=== PATIENT | male | born 1960 | race Caucasian/White ===

== ENCOUNTER 2017-01-20 13:17 | Emergency (ER) | payer BC, OTHER ==
[~2017-01-20] VITALS: Ht 177.8 cm; Wt 118.4 kg
[~2017-01-20 13:17] MED LIST: ACET500C PO
[2017-01-20 14:27] VITALS: BP 115/86
== END 2017-01-20 15:52 | disposition home or self-care (01) ==
LOC: ER 13:17
DX: S82.831A Other fracture of upper and lower end of right fibula, initial encounter for closed fracture (principal); X58.XXXA Exposure to other specified factors, initial encounter; Y93.89 Activity, other specified; Y99.8 Other external cause status; Y92.89 Other specified places as the place of occurrence of the external cause
CPT/HCPCS: 29505; 73700

== ENCOUNTER → 2017-06-07 | Outpatient (CLI) | payer OTHER ==
[2017-06-07 08:29] LABS: Urine RBC None Seen /hpf (0 - 3)
[2017-06-07 08:31] LABS: Basophils # (auto) 0 uL; Basophils % (auto) 0.5 % (0.0-2.0); CONDITION Y; Eosinophils # (auto) 0.2 uL; Eosinophils % (auto) 3.3 % (0.0-7.0); Hematocrit 48.3 % (41.0-53.0); Hemoglobin 16.6 g/dL (13.5-17.5); Lymphocytes # (auto) 2.2 uL; Lymphocytes % (auto) 33.5 % (10.0-50.0); Mean Corpuscular Hemoglobin 33.4 pg (28.0-32.0); Mean Corpuscular Hgb Conc. 34.5 g/dL (32.0-36.0); Mean Corpuscular Volume 96.9 fL (80.0-100.0); Mean Platelet Volume 8.6 fL (7.4-10.4); Monocytes # (auto) 0.5 uL; Monocytes % (auto) 7.6 % (0.0-12.0); Neutrophils # (auto) 3.6 uL; Neutrophils % (auto) 55.1 % (37.0-80.0); Platelet Count (auto) 162 10^3/uL (140-450); Red Cell Distribution Width 14.6 % (11.6-16.0); White Blood Cell 6.5 10^3/uL (4.4-10.8)
[2017-06-07 08:45] LABS: Urine Bilirubin Negative (Negative); Urine Blood Negative /uL (Negative); Urine Color Colorless (Yellow); Urine Glucose Normal (Normal); Urine Ketone Negative (Negative); Urine Nitrite Negative (Negative); Urine Urobilinogen Normal (Negative)
[2017-06-07 09:08] LABS: BUN/Creatinine Ratio 17.9; Bilirubin, Total 0.8 mg/dL (0.2-1.0); Potassium 4.2 mmol/L (3.5-5.1); Total Protein 8.1 g/dL (6.4-8.2)
== END | disposition home or self-care (01) ==
LOC: LAB 07:59
PROVIDERS: ATTEND Physician Assistant
DX: E11.9 Type 2 diabetes mellitus without complications (principal); K21.9 Gastro-esophageal reflux disease without esophagitis; E66.9 Obesity, unspecified
CPT/HCPCS: 36415; 80053; 80061; 81001; 82306; 82607; 83036; 84153; 84403; 85025

== ENCOUNTER → 2017-11-24 | Outpatient (CLI) | payer OTHER ==
[2017-11-24 07:36] LABS: Basophils # (auto) 0.1 uL; Basophils % (auto) 1.2 % (0.0-2.0); Eosinophils # (auto) 0.2 uL; Eosinophils % (auto) 4.7 % (0.0-7.0); Hematocrit 45.3 % (41.0-53.0); Hemoglobin 15.4 g/dL (13.5-17.5); Lymphocytes # (auto) 1.7 uL; Lymphocytes % (auto) 32.6 % (10.0-50.0); Monocytes # (auto) 0.5 uL; Monocytes % (auto) 8.9 % (0.0-12.0); Neutrophils # (auto) 2.7 uL; Neutrophils % (auto) 52.6 % (37.0-80.0); Nucleated Red Blood Cells % 0.2 %; Platelet Count (auto) 136 10^3/uL (140-450); Red Blood Cells 4.66 10^6/uL (4.5-5.90); Red Cell Distribution Width 14.5 % (11.8-14.3); White Blood Cell 5.1 10^3/uL (4.4-10.8)
[2017-11-24 07:56] LABS: Albumin 3.7 g/dL (3.4-5.0); BUN/Creatinine Ratio 12.2; Bilirubin, Total 0.8 mg/dL (0.2-1.0); Calcium 8.3 mg/dL (8.5-10.1); Potassium 4.2 mmol/L (3.5-5.1); Total Protein 7.8 g/dL (6.4-8.2)
== END | disposition home or self-care (01) ==
LOC: LAB 06:57
PROVIDERS: ATTEND Nurse Practitioner
DX: E78.5 Hyperlipidemia, unspecified (principal)
CPT/HCPCS: 36415; 80053; 80061; 85025

== ENCOUNTER → 2018-03-23 | Outpatient (CLI) | payer OTHER ==
[2018-03-23 07:46] LABS: Basophils # (auto) 0.1 uL; Basophils % (auto) 1.2 % (0.0-2.0); Eosinophils # (auto) 0.3 uL; Eosinophils % (auto) 6.6 % (0.0-7.0); Hemoglobin 15.7 g/dL (13.5-17.5); Lymphocytes # (auto) 1.6 uL; Lymphocytes % (auto) 30.3 % (10.0-50.0); Mean Corpuscular Hemoglobin 33.2 pg (28.0-32.0); Mean Corpuscular Hgb Conc. 34.2 g/dL (32.0-36.0); Monocytes # (auto) 0.5 uL; Monocytes % (auto) 10.1 % (0.0-12.0); Neutrophils # (auto) 2.7 uL; Neutrophils % (auto) 51.8 % (37.0-80.0); Nucleated Red Blood Cells % 0.1 %; Red Blood Cells 4.74 10^6/uL (4.5-5.90); Red Cell Distribution Width 14.8 % (11.8-14.3); White Blood Cell 5.3 10^3/uL (4.4-10.8)
[2018-03-23 07:50] LABS: Platelet Count (auto) 124 10^3/uL (140-450)
[2018-03-23 08:15] LABS: Urine Bacteria NONE SEEN /hpf (None Seen); Urine Blood Negative /uL (Negative); Urine Specific Gravity 1.012 (1.001-1.035); Urine WBC <1 /hpf (0 - 3)
[2018-03-23 08:21] LABS: Albumin 3.7 g/dL (3.4-5.0); BUN/Creatinine Ratio 22.2; Calcium 8.8 mg/dL (8.5-10.1); Potassium 4.1 mmol/L (3.5-5.1); Total Protein 7.9 g/dL (6.4-8.2)
== END | disposition home or self-care (01) ==
LOC: LAB 07:13
PROVIDERS: ATTEND Nurse Practitioner
DX: E78.5 Hyperlipidemia, unspecified (principal); E11.9 Type 2 diabetes mellitus without complications; K21.9 Gastro-esophageal reflux disease without esophagitis
CPT/HCPCS: 36415; 80053; 80061; 81001; 83036; 84443; 85025

== ENCOUNTER → 2019-02-27 | Outpatient (CLI) | payer OTHER ==
[2019-02-27 08:09] LABS: Urine Bacteria NONE SEEN /hpf (None Seen); Urine Blood Negative /uL (Negative); Urine Specific Gravity 1.031 (1.001-1.035); Urine WBC <1 /hpf (0 - 3)
[2019-02-27 08:36] LABS: Albumin 3.8 g/dL (3.4-5.0); Calcium 8.9 mg/dL (8.5-10.1)
[2019-02-27 08:41] LABS: BUN/Creatinine Ratio 27.2; Bilirubin, Total 1.3 mg/dL (0.2-1.0); Total Protein 7.5 g/dL (6.4-8.2)
== END | disposition home or self-care (01) ==
LOC: LAB 07:21
PROVIDERS: ATTEND Nurse Practitioner
DX: E78.5 Hyperlipidemia, unspecified (principal)
CPT/HCPCS: 36415; 80053; 80061; 81001; 82043; 82306; 83036; 84153

== ENCOUNTER → 2019-03-03 | Outpatient (CLI) | payer OTHER ==
[2019-03-03 12:11] LABS: Basophils # (auto) 0 uL; Basophils % (auto) 1.2 % (0.0-2.0); Eosinophils # (auto) 0.1 uL; Eosinophils % (auto) 2.8 % (0.0-7.0); Hematocrit 47.8 % (41.0-53.0); Hemoglobin 16.1 g/dL (13.5-17.5); Lymphocytes # (auto) 1.5 uL; Lymphocytes % (auto) 36.9 % (10.0-50.0); Mean Corpuscular Hemoglobin 33.5 pg (28.0-32.0); Mean Corpuscular Hgb Conc. 33.7 g/dL (32.0-36.0); Mean Corpuscular Volume 99.2 fL (80.0-100.0); Monocytes # (auto) 0.3 uL; Monocytes % (auto) 7.8 % (0.0-12.0); Neutrophils # (auto) 2.1 uL; Neutrophils % (auto) 51.3 % (37.0-80.0); Nucleated Red Blood Cells % 0.1 %; Platelet Count (auto) 93 10^3/uL (140-450); Red Blood Cells 4.82 10^6/uL (4.5-5.90); White Blood Cell 4.2 10^3/uL (4.4-10.8)
[2019-03-03 13:50] LABS: Urine Bacteria NONE SEEN /hpf (None Seen); Urine Blood Negative /uL (Negative); Urine Mucus FEW (None Seen); Urine Specific Gravity 1.014 (1.001-1.035); Urine Sperm PRESENT /hpf (None Seen); Urine WBC 1 /hpf (0 - 3)
[2019-03-03 14:22] LABS: Albumin 3.9 g/dL (3.4-5.0); Calcium 8.9 mg/dL (8.5-10.1); Potassium 4.3 mmol/L (3.5-5.1)
[2019-03-03 14:28] LABS: BUN/Creatinine Ratio 14.8; Bilirubin, Total 1.3 mg/dL (0.2-1.0); Total Protein 7.7 g/dL (6.4-8.2)
== END | disposition home or self-care (01) ==
LOC: LAB 11:28
PROVIDERS: ATTEND Nurse Practitioner
DX: E11.9 Type 2 diabetes mellitus without complications (principal); E78.5 Hyperlipidemia, unspecified
CPT/HCPCS: 36415; 80053; 80061; 81001; 82043; 82306; 83036; 84443; 85025

== ENCOUNTER → 2019-06-05 | Outpatient (CLI) | payer OTHER ==
[2019-06-05 09:10] LABS: Potassium 4.6 mmol/L (3.5-5.1)
[2019-06-05 09:21] LABS: Albumin 3.6 g/dL (3.4-5.0); BUN/Creatinine Ratio 24.1; Bilirubin, Total 0.6 mg/dL (0.2-1.0); Calcium 8.6 mg/dL (8.5-10.1); Total Protein 7.3 g/dL (6.4-8.2)
== END | disposition home or self-care (01) ==
LOC: LAB 07:35
PROVIDERS: ATTEND Nurse Practitioner
DX: E11.9 Type 2 diabetes mellitus without complications (principal)
CPT/HCPCS: 36415; 80053; 83036

== ENCOUNTER → 2019-11-22 | Outpatient (CLI) | payer OTHER ==
[2019-11-22 08:07] LABS: Basophils # (auto) 0 uL; Eosinophils # (auto) 0.2 uL; Hematocrit 44.2 % (41.0-53.0); Lymphocytes # (auto) 1.4 uL; Lymphocytes % (auto) 29.4 % (10.0-50.0); Mean Corpuscular Hemoglobin 33.2 pg (28.0-32.0); Mean Corpuscular Hgb Conc. 33.9 g/dL (32.0-36.0); Mean Corpuscular Volume 97.9 fL (80.0-100.0); Monocytes # (auto) 0.4 uL; Monocytes % (auto) 8.6 % (0.0-12.0); Neutrophils # (auto) 2.7 uL; Nucleated Red Blood Cells % 0.1 %; Platelet Count (auto) 86 10^3/uL (140-450); Red Blood Cells 4.51 10^6/uL (4.5-5.90); White Blood Cell 4.7 10^3/uL (4.4-10.8)
[2019-11-22 08:36] LABS: Albumin 3.7 g/dL (3.4-5.0); Calcium 8.9 mg/dL (8.5-10.1); Potassium 4.5 mmol/L (3.5-5.1)
[2019-11-22 08:41] LABS: Bilirubin, Total 0.9 mg/dL (0.2-1.0); Total Protein 7.3 g/dL (6.4-8.2)
== END | disposition home or self-care (01) ==
LOC: LAB 07:44
PROVIDERS: ATTEND Nurse Practitioner
DX: E78.5 Hyperlipidemia, unspecified (principal); E11.9 Type 2 diabetes mellitus without complications
CPT/HCPCS: 36415; 80053; 80061; 83036; 85025

== ENCOUNTER → 2020-03-21 | Outpatient (CLI) | payer OTHER ==
[2020-03-21 09:14] LABS: Basophils # (auto) 0 10 ^3/uL (0-0.2); Basophils % (auto) 1.3 % (0.0-2.0); Eosinophils # (auto) 0.1 10 ^3/uL (0-0.8); Eosinophils % (auto) 3.7 % (0.0-7.0); Hematocrit 42.6 % (41.0-53.0); Hemoglobin 14.4 g/dL (13.5-17.5); Lymphocytes # (auto) 1.3 10 ^3/uL (0.4-5.4); Lymphocytes % (auto) 35.6 % (10.0-50.0); Mean Corpuscular Hemoglobin 32.8 pg (28.0-32.0); Mean Corpuscular Hgb Conc. 33.8 g/dL (32.0-36.0); Mean Corpuscular Volume 97.2 fL (80.0-100.0); Monocytes # (auto) 0.3 10 ^3/uL (0-1.3); Monocytes % (auto) 8.6 % (0.0-12.0); Neutrophils # (auto) 1.8 10 ^3/uL (1.6-8.6); Neutrophils % (auto) 50.8 % (37.0-80.0); Nucleated Red Blood Cells % 0.1 %; Platelet Count (auto) 76 10^3/uL (140-450); Red Blood Cells 4.38 10^6/uL (4.5-5.90); Red Cell Distribution Width 15.3 % (11.8-14.3); White Blood Cell 3.6 10^3/uL (4.4-10.8)
[2020-03-21 10:22] LABS: Urine Bacteria NONE SEEN /hpf (None Seen); Urine Blood Negative /uL (Negative); Urine Mucus FEW (None Seen); Urine Specific Gravity 1.021 (1.001-1.035); Urine WBC 1 /hpf (0 - 3)
[2020-03-21 10:41] LABS: Albumin 3.4 g/dL (3.4-5.0)
[2020-03-21 10:48] LABS: BUN/Creatinine Ratio 23.2; Bilirubin, Total 0.9 mg/dL (0.2-1.0); Calcium 8.3 mg/dL (8.5-10.1); Total Protein 7.1 g/dL (6.4-8.2)
== END | disposition home or self-care (01) ==
LOC: LAB 08:51
PROVIDERS: ATTEND Nurse Practitioner
DX: E78.2 Mixed hyperlipidemia (principal); Z00.00 Encounter for general adult medical examination without abnormal findings; E78.5 Hyperlipidemia, unspecified
CPT/HCPCS: 36415; 80053; 80061; 81001; 82043; 83036; 84443; 85025

== ENCOUNTER → 2020-08-06 | Outpatient (CLI) | payer OTHER ==
[2020-08-06 08:53] LABS: Basophils # (auto) 0 10 ^3/uL (0-0.2); Basophils % (auto) 0.7 % (0.0-2.0); Eosinophils # (auto) 0.1 10 ^3/uL (0-0.8); Eosinophils % (auto) 2.6 % (0.0-7.0); Hematocrit 43.5 % (41.0-53.0); Hemoglobin 14.5 g/dL (13.5-17.5); Lymphocytes # (auto) 1.5 10 ^3/uL (0.4-5.4); Mean Corpuscular Hemoglobin 33.1 pg (28.0-32.0); Mean Corpuscular Hgb Conc. 33.3 g/dL (32.0-36.0); Mean Corpuscular Volume 99.4 fL (80.0-100.0); Monocytes # (auto) 0.5 10 ^3/uL (0-1.3); Monocytes % (auto) 10.8 % (0.0-12.0); Neutrophils # (auto) 2.2 10 ^3/uL (1.6-8.6); Neutrophils % (auto) 50.9 % (37.0-80.0); Red Blood Cells 4.38 10^6/uL (4.5-5.90); Red Cell Distribution Width 15.6 % (11.8-14.3); White Blood Cell 4.4 10^3/uL (4.4-10.8)
[2020-08-06 09:10] LABS: Platelet Count (auto) 69 10^3/uL (140-450)
[2020-08-06 09:59] LABS: Potassium 4.3 mmol/L (3.5-5.1)
[2020-08-06 10:09] LABS: Albumin 3.5 g/dL (3.4-5.0); BUN/Creatinine Ratio 18.1; Bilirubin, Total 1.5 mg/dL (0.2-1.0); Total Protein 6.7 g/dL (6.4-8.2)
== END | disposition home or self-care (01) ==
LOC: LAB 08:18
PROVIDERS: ATTEND Nurse Practitioner
DX: E11.9 Type 2 diabetes mellitus without complications (principal); E78.5 Hyperlipidemia, unspecified
CPT/HCPCS: 36415; 80053; 80061; 83036; 85025

== ENCOUNTER → 2021-02-25 | Outpatient (CLI) | payer OTHER ==
[2021-02-25 08:50] LABS: Basophils # (auto) 0 10 ^3/uL (0-0.2); Basophils % (auto) 0.6 % (0.0-2.0); Eosinophils # (auto) 0.4 10 ^3/uL (0-0.8); Hematocrit 43.2 % (41.0-53.0); Hemoglobin 14.7 g/dL (13.5-17.5); Lymphocytes # (auto) 1.2 10 ^3/uL (0.4-5.4); Lymphocytes % (auto) 27.4 % (10.0-50.0); Mean Corpuscular Hemoglobin 33.5 pg (28.0-32.0); Mean Corpuscular Volume 98.6 fL (80.0-100.0); Monocytes # (auto) 0.4 10 ^3/uL (0-1.3); Monocytes % (auto) 9.7 % (0.0-12.0); Neutrophils # (auto) 2.4 10 ^3/uL (1.6-8.6); Neutrophils % (auto) 54.3 % (37.0-80.0); Nucleated Red Blood Cells % 0.1 %; Platelet Count (auto) 67 10^3/uL (140-450); Red Blood Cells 4.38 10^6/uL (4.5-5.90); Red Cell Distribution Width 15.8 % (11.8-14.3); White Blood Cell 4.5 10^3/uL (4.4-10.8)
[2021-02-25 09:02] LABS: Urine Bacteria NONE SEEN /hpf (None Seen); Urine Blood Negative /uL (Negative); Urine Specific Gravity 1.039 (1.001-1.035); Urine WBC 1 /hpf (0 - 3)
[2021-02-25 09:17] LABS: Albumin 3.5 g/dL (3.4-5.0); Calcium 9.2 mg/dL (8.5-10.1)
[2021-02-25 09:23] LABS: BUN/Creatinine Ratio 15.5; Total Protein 7.3 g/dL (6.4-8.2)
== END | disposition home or self-care (01) ==
LOC: LAB 08:33
PROVIDERS: ATTEND Nurse Practitioner
DX: I10 Essential (primary) hypertension (principal); E11.9 Type 2 diabetes mellitus without complications; E78.5 Hyperlipidemia, unspecified
CPT/HCPCS: 36415; 80053; 80061; 81001; 82043; 83036; 84443; 85025

== ENCOUNTER → 2021-05-22 | Outpatient (CLI) | payer OTHER ==
[2021-05-22 10:02] LABS: Urine Bacteria NONE SEEN /hpf (None Seen); Urine Blood Negative /uL (Negative); Urine Specific Gravity 1.019 (1.001-1.035); Urine WBC 1 /hpf (0 - 3)
[2021-05-22 10:25] LABS: Potassium 3.8 mmol/L (3.5-5.1)
[2021-05-22 10:39] LABS: Albumin 2.9 g/dL (3.4-5.0); BUN/Creatinine Ratio 15.7; Bilirubin, Total 2.1 mg/dL (0.2-1.0); Calcium 8.3 mg/dL (8.5-10.1); Total Protein 6.7 g/dL (6.4-8.2)
[2021-05-23 13:11] LABS: Creatinine Clearance, Urine 147.24 mL/min (75-115)
== END | disposition home or self-care (01) ==
LOC: LAB 09:32
PROVIDERS: ATTEND Nurse Practitioner
DX: I10 Essential (primary) hypertension (principal); E78.5 Hyperlipidemia, unspecified; E11.00 Type 2 diabetes mellitus with hyperosmolarity without nonketotic hyperglycemic-hyperosmolar coma (NKHHC)
CPT/HCPCS: 36415; 80053; 80061; 81001; 82575; 83036

== ENCOUNTER → 2022-02-26 | Outpatient (CLI) | payer OTHER ==
[2022-02-26 09:32] LABS: Calcium 8.5 mg/dL (8.5-10.1)
[2022-02-26 09:38] LABS: BUN/Creatinine Ratio 18.9; Bilirubin, Total 1.5 mg/dL (0.2-1.0); Total Protein 6.7 g/dL (6.4-8.2)
== END | disposition home or self-care (01) ==
LOC: LAB 07:54
PROVIDERS: ATTEND Nurse Practitioner
DX: I10 Essential (primary) hypertension (principal); E78.5 Hyperlipidemia, unspecified
CPT/HCPCS: 36415; 80053; 80061

== ENCOUNTER → 2022-11-26 | Outpatient (CLI) | payer OTHER ==
[2022-11-26 10:54] LABS: Basophils # (auto) 0 10 ^3/uL (0-0.2); Eosinophils # (auto) 0.3 10 ^3/uL (0-0.8); Hemoglobin 11.9 g/dL (13.5-17.5); Neutrophils # (auto) 1.7 10 ^3/uL (1.6-8.6); White Blood Cell 3.2 10^3/uL (4.4-10.8)
[2022-11-26 10:56] LABS: Basophils % (auto) 0.8 % (0.0-2.0); Eosinophils % (auto) 8.4 % (0.0-7.0); Hematocrit 35.8 % (41.0-53.0); Lymphocytes # (auto) 0.8 10 ^3/uL (0.4-5.4); Mean Corpuscular Hemoglobin 31.3 pg (28.0-32.0); Mean Corpuscular Hgb Conc. 33.1 g/dL (32.0-36.0); Mean Corpuscular Volume 94.5 fL (80.0-100.0); Monocytes # (auto) 0.4 10 ^3/uL (0-1.3); Neutrophils % (auto) 54.8 % (37.0-80.0); Nucleated Red Blood Cells % 0.1 %; Red Blood Cells 3.79 10^6/uL (4.5-5.90); Red Cell Distribution Width 18.5 % (11.8-14.3)
[2022-11-26 11:55] LABS: Potassium 3.9 mmol/L (3.5-5.1)
[2022-11-26 12:13] LABS: Albumin 3.1 g/dL (3.4-5.0); BUN/Creatinine Ratio 17.6; Bilirubin, Total 2.2 mg/dL (0.2-1.0); Calcium 8.6 mg/dL (8.5-10.1); Total Protein 6.4 g/dL (6.4-8.2)
[2022-11-26 12:25] LABS: Urine Bacteria NONE SEEN /hpf (None Seen); Urine Blood Negative /uL (Negative); Urine Specific Gravity 1.013 (1.001-1.035); Urine WBC <1 /hpf (0 - 3)
== END | disposition home or self-care (01) ==
LOC: LAB 10:36
PROVIDERS: ATTEND Nurse Practitioner
DX: I10 Essential (primary) hypertension (principal); E78.5 Hyperlipidemia, unspecified; R73.9 Hyperglycemia, unspecified
CPT/HCPCS: 36415; 80053; 80061; 81001; 83036; 84153; 84443; 85025

== ENCOUNTER → 2023-02-12 | Outpatient (CLI) | payer OTHER | END | disposition home or self-care (01) | LOC: LAB 11:15 | PROVIDERS: ATTEND Family Medicine | DX: L57.0 Actinic keratosis (principal) | CPT/HCPCS: 88302 ==

== ENCOUNTER → 2023-07-28 | Outpatient (CLI) | payer OTHER ==
[2023-07-28 10:31] LABS: Alanine Aminotransferase 37 U/L (7-40); Albumin 3.4 g/dL (3.2-4.8); Alkaline Phosphatase 204 U/L (46-116); Anion Gap 10 (5-15); Aspartate Aminotransferase 61 U/L (13-40); BUN/Creatinine Ratio 11.6 (10.0-20.0); Blood Urea Nitrogen 8 mg/dL (9-23); Calcium 9.2 mg/dL (8.5-10.1); Carbon Dioxide 23 mmol/L (20-30); Chloride 109 mmol/L (98-107); Cholesterol 117 mg/dL (< 200); Glucose 79 mg/dL (74-106); HDL Cholesterol 54 mg/dL (40-59); LDL Cholesterol 33 mg/dL (< 100); Potassium 4.2 mmol/L (3.5-5.1); Sodium 142 mmol/L (136-145); Triglycerides 69 mg/dL (< 150)
[2023-07-28 10:32] LABS: Total Protein 6.2 g/dL (5.7-8.2)
== END | disposition home or self-care (01) ==
LOC: LAB 09:26
PROVIDERS: ATTEND Nurse Practitioner
DX: E11.9 Type 2 diabetes mellitus without complications (principal); E78.5 Hyperlipidemia, unspecified
CPT/HCPCS: 36415; 80053; 80061; 83036

== ENCOUNTER 2023-09-07 08:58 | Inpatient (IN) | payer BC, OTHER ==
[~2023-09-07] VITALS: Ht 177.8 cm; Wt 108.0 kg
[2023-09-07 10:38] LABS: Basophils # (auto) 0 10 ^3/uL (0-0.2); Eosinophils # (auto) 0.2 10 ^3/uL (0-0.8); Lymphocytes # (auto) 0.9 10 ^3/uL (0.4-5.4); Monocytes # (auto) 0.3 10 ^3/uL (0-1.3); Monocytes % (auto) 9.9 % (0.0-12.0); Neutrophils # (auto) 1.9 10 ^3/uL (1.6-8.6)
[2023-09-07 10:41] LABS: Basophils % (auto) 0.5 % (0.0-2.0); Eosinophils % (auto) 5.4 % (0.0-7.0); Hematocrit 38.6 % (41.0-53.0); Hemoglobin 13.3 g/dL (13.5-17.5); Lymphocytes % (auto) 27.3 % (10.0-50.0); Mean Corpuscular Hemoglobin 36.7 pg (28.0-32.0); Mean Corpuscular Hgb Conc. 34.4 g/dL (32.0-36.0); Mean Corpuscular Volume 106.7 fL (80.0-100.0); Neutrophils % (auto) 56.9 % (37.0-80.0); Nucleated Red Blood Cells % 0.2 %; Red Blood Cells 3.62 10^6/uL (4.5-5.90); Red Cell Distribution Width 15.5 % (11.8-14.3); White Blood Cell 3.3 10^3/uL (4.4-10.8)
[2023-09-07 10:53] LABS: Alanine Aminotransferase 49 U/L (7-40); Albumin 3.4 g/dL (3.2-4.8); Alkaline Phosphatase 152 U/L (46-116); Anion Gap 8 (5-15); Aspartate Aminotransferase 73 U/L (13-40); BUN/Creatinine Ratio 15.3 (10.0-20.0); Blood Urea Nitrogen 13 mg/dL (9-23); Calcium 8.9 mg/dL (8.5-10.1); Carbon Dioxide 24 mmol/L (20-30); Chloride 109 mmol/L (98-107); Glucose 72 mg/dL (74-106); Sodium 141 mmol/L (136-145)
[2023-09-07 10:54] LABS: Bilirubin, Total 3.6 mg/dL (0.2-1.0)
[2023-09-07] MEDS ORDERED: AZITHROMYCIN 500MG/ 250ML 250 ML IV ONE (11:30)
[2023-09-07] MEDS ORDERED: cefTRIAXone 1GM/50ML D5W 50 ML IV ONE (11:30)
[2023-09-07 12:19] LABS: Lactic Acid w/Reflex 4.2 mmol/L (0.4-2.0)
[2023-09-07] MEDS ORDERED: SODIUM CHLORIDE 0.9% 1,000 ML IV ONE ×2 (12:45)
[2023-09-07 12:47] LABS: Lipase 101 U/L (12-53)
[2023-09-07] MEDS ORDERED: ONDANSETRON HCL 4 MG/2 ML VIAL IV PRN (14:30)
[2023-09-07] MEDS ORDERED: ACETAMINOPHEN 325 MG TAB PO PRN (14:30)
[2023-09-07 16:17] LABS: LDL Cholesterol 39 mg/dL (< 100); Triglycerides 103 mg/dL (< 150)
[2023-09-07 16:19] LABS: Cholesterol 119 mg/dL (< 200); HDL Cholesterol 45 mg/dL (40-59)
[2023-09-07 17:50] LABS: Urine Bacteria MOD /hpf (None Seen); Urine Blood Negative /uL (Negative); Urine Clarity Clear (Clear); Urine Color Yellow (Yellow); Urine Hyaline Cast FEW /lpf (0 - 2); Urine Mucus FEW (None Seen); Urine Protein, UAD 1+ (Negative); Urine Specific Gravity 1.032 (1.001-1.035); Urine Sperm PRESENT /hpf (None Seen); Urine Urobilinogen Normal (Negative); Urine WBC 3 /hpf (0 - 3); Urine pH 5.5 (5.0-8.0)
[2023-09-07 18:03] LABS: Amphetamine Screen, Urine Neg (NEGATIVE)
[2023-09-07 18:04] LABS: Barbiturate Scree,Urine Neg (NEGATIVE); Benzodiazephine Screen, Urine Neg (NEGATIVE); Cannabinoid Screen, Urine Pos (NEGATIVE); Cocaine Screen, Urine Neg (NEGATIVE); Opiate Scree,Urine Neg (NEGATIVE); Phencyclidine Screen, Urine Neg (NEGATIVE)
[2023-09-07 19:30] VITALS: PULSE 100; RESP 22; O2SAT 92
[2023-09-07 20:21] LABS: INR 1.32 (0.9-1.15); Partial Thromboplastin Time 28.5 SEC (24.5-34.5); Prothrombin Time 13.6 sec (9.3-11.8)
[2023-09-07 20:43] LABS: Lactic Acid w/Reflex 3.7 mmol/L (0.4-2.0)
[2023-09-07 21:11] LABS: Salicylate < 3.0 mg/dL (2.8-20.0)
[2023-09-08 05:10] VITALS: PULSE 71; RESP 13; O2SAT 94
[2023-09-08 06:52] LABS: Alanine Aminotransferase 39 U/L (7-40); Albumin 2.8 g/dL (3.2-4.8); Alkaline Phosphatase 113 U/L (46-116); Anion Gap 8 (5-15); Aspartate Aminotransferase 60 U/L (13-40); BUN/Creatinine Ratio 17.2 (10.0-20.0); Blood Urea Nitrogen 11 mg/dL (9-23); Carbon Dioxide 25 mmol/L (20-30); Chloride 109 mmol/L (98-107); Glucose 58 mg/dL (74-106); Magnesium 1.9 mg/dL (1.6-2.6); Potassium 3.8 mmol/L (3.5-5.1); Sodium 142 mmol/L (136-145)
[2023-09-08 06:53] LABS: Bilirubin, Total 3.5 mg/dL (0.2-1.0); Total Protein 5.1 g/dL (5.7-8.2)
[2023-09-08 06:58] LABS: Basophils # (auto) 0 10 ^3/uL (0-0.2); Eosinophils % (auto) 5.8 % (0.0-7.0); Hemoglobin 11.5 g/dL (13.5-17.5); Lymphocytes # (auto) 0.7 10 ^3/uL (0.4-5.4); Mean Corpuscular Hgb Conc. 34.2 g/dL (32.0-36.0); Neutrophils # (auto) 1.4 10 ^3/uL (1.6-8.6)
[2023-09-08 07:01] LABS: Basophils % (auto) 0.6 % (0.0-2.0); Eosinophils # (auto) 0.2 10 ^3/uL (0-0.8); Hematocrit 33.7 % (41.0-53.0); Lymphocytes % (auto) 25.9 % (10.0-50.0); Mean Corpuscular Hemoglobin 36.1 pg (28.0-32.0); Mean Corpuscular Volume 105.6 fL (80.0-100.0); Monocytes # (auto) 0.4 10 ^3/uL (0-1.3); Monocytes % (auto) 13.8 % (0.0-12.0); Neutrophils % (auto) 53.9 % (37.0-80.0); Nucleated Red Blood Cells % 0.1 %; Red Blood Cells 3.19 10^6/uL (4.5-5.90); Red Cell Distribution Width 15.6 % (11.8-14.3); White Blood Cell 2.6 10^3/uL (4.4-10.8)
[2023-09-08 08:00] VITALS: PULSE 72; RESP 13; O2SAT 94
[2023-09-08] MEDS ORDERED: ASPI-325 PO (08:42)
[2023-09-08] MEDS ORDERED: PANT40TA57 PO (08:42)
[2023-09-08] MEDS ORDERED: LISI10TA34 PO (08:42)
[2023-09-08] MEDS ORDERED: LOVA10TA54 PO (08:42)
[2023-09-08] MEDS ORDERED: TAMS0.4C36 PO (08:42)
[2023-09-08] MEDS ORDERED: AZITHROMYCIN 500MG/ 250ML 250 ML IV SCH (10:00)
[2023-09-08] MEDS ORDERED: ENOXAPARIN SOD 40 MG/0.4 ML SYRINGE SC SCH (10:00)
[2023-09-08] MEDS ORDERED: METF-372 PO (10:44)
[2023-09-08] MEDS: cefTRIAXone 1GM/50ML D5W 50 ML IV SCH (11:52)
[2023-09-08 13:30] VITALS: BP 129/71; PULSE 79; RESP 18; TEMP 98.1; O2SAT 98
[2023-09-08 15:15] LABS: Body Fluid Polymorphonuclear 10 % (0-25); Body Fluid White Blood Cells 90 CUMM (0-200)
[2023-09-08 15:16] LABS: Body Fluid Red Blood Cells 2348 CUMM (0-2000)
[2023-09-08 16:30] VITALS: BP 115/73; PULSE 87; RESP 18; TEMP 98.2; O2SAT 92
[2023-09-08 18:09] VITALS: PULSE 98; RESP 18; O2SAT 97
[2023-09-08] MEDS: DOXYCYCLINE 100 MG TAB/CAP PO SCH (21:32)
[2023-09-08 22:00] VITALS: BP 113/67; PULSE 84; RESP 18; TEMP 98.5; O2SAT 92
[2023-09-09 05:00] VITALS: BP 110/71; PULSE 70; RESP 18; TEMP 97.9; O2SAT 91
[2023-09-09 06:30] LABS: Basophils # (auto) 0 10 ^3/uL (0-0.2); Eosinophils # (auto) 0.1 10 ^3/uL (0-0.8); Hemoglobin 11.7 g/dL (13.5-17.5); Neutrophils # (auto) 1.4 10 ^3/uL (1.6-8.6); Red Cell Distribution Width 15.6 % (11.8-14.3); White Blood Cell 2.8 10^3/uL (4.4-10.8)
[2023-09-09 06:35] LABS: Basophils % (auto) 0.8 % (0.0-2.0); Hematocrit 34.5 % (41.0-53.0); Lymphocytes # (auto) 0.9 10 ^3/uL (0.4-5.4); Lymphocytes % (auto) 33.1 % (10.0-50.0); Mean Corpuscular Hemoglobin 36.1 pg (28.0-32.0); Mean Corpuscular Volume 106.4 fL (80.0-100.0); Monocytes # (auto) 0.4 10 ^3/uL (0-1.3); Monocytes % (auto) 12.8 % (0.0-12.0); Neutrophils % (auto) 48.3 % (37.0-80.0); Nucleated Red Blood Cells % 0.2 %; Red Blood Cells 3.24 10^6/uL (4.5-5.90)
[2023-09-09 06:39] LABS: Anion Gap 7 (5-15); Carbon Dioxide 24 mmol/L (20-30); Chloride 110 mmol/L (98-107); Sodium 141 mmol/L (136-145)
[2023-09-09 06:40] LABS: Calcium 8.3 mg/dL (8.5-10.1)
[2023-09-09 06:45] LABS: Blood Urea Nitrogen 8 mg/dL (9-23); Glucose 89 mg/dL (74-106)
[2023-09-09 08:30] VITALS: BP 121/77; PULSE 59; RESP 20; TEMP 98; O2SAT 92
[2023-09-09] MEDS: DOXYCYCLINE 100 MG TAB/CAP PO SCH (09:14)
[2023-09-09] MEDS: cefTRIAXone 1GM/50ML D5W 50 ML IV SCH (09:14)
[2023-09-09 09:39] LABS: Hepatitis B Core Total AB Negative (Negative)
[2023-09-09 10:56] LABS: Hepatitis A Ab IgM Negative; Hepatitis A Total Antibody Positive (Negative); Hepatitis B Core IgM Negative; Hepatitis B Surface Antibody Negative (Negative); Hepatitis B Surface Antigen Negative (Negative)
[2023-09-09 10:57] LABS: Hepatitis C Antibody Negative (Negative)
[2023-09-09 11:38] VITALS: BP 121/77; PULSE 59; RESP 20; TEMP 98; O2SAT 92
[2023-09-09 12:06] LABS: Protein, Body Fluid 0.6 g/dL (.)
== END 2023-09-09 12:20 | disposition home or self-care (01) | DRG 432 ==
LOC: ER 08:58 → OVERFLOW 14:33 → WEST WING 09-08 09:00
PROVIDERS: ADMIT Internal Medicine; ATTEND Student in an Organized Health Care Education/Training Program
PROC: 0W9G3ZZ Drainage of Peritoneal Cavity, Percutaneous Approach (ICD-10-PCS; principal; 2023-09-08)
DX: K74.60 Unspecified cirrhosis of liver (principal); J15.69 Pneumonia due to other Gram-negative bacteria; J96.01 Acute respiratory failure with hypoxia; J15.9 Unspecified bacterial pneumonia; R18.8 Other ascites; J90 Pleural effusion, not elsewhere classified; I10 Essential (primary) hypertension; E11.9 Type 2 diabetes mellitus without complications
CPT/HCPCS: 36415; 71046; 74176; 74181; 76604; 76705; 76942; 80048; 80053; 80061; 80074; 80307; 80329; 81001; 82105; 82248; 83036; 83605; 83690; 83735; 83880; 83986; 84154; 84443; 85025; 85610; 85730; 86704; 86706; 86708; 86803; 87040; 87205; 87340; 89051; 93005; 96365; 96368; G0378; J0696

== ENCOUNTER → 2023-11-05 | Outpatient (CLI) | payer OTHER ==
[~2023-11-05] MED LIST changes: +ASPI-325 PO; +LISI10TA34 PO; +LOVA10TA54 PO; +METF-372 PO; +PANT40TA57 PO; +TAMS0.4C36 PO
== END | disposition home or self-care (01) ==
LOC: LAB 08:55
PROVIDERS: ATTEND Family Medicine
DX: L72.11 Pilar cyst (principal)
CPT/HCPCS: 88302

== ENCOUNTER → 2024-01-04 | Outpatient (CLI) | payer OTHER ==
[2024-01-04 10:37] LABS: Chloride 107 mmol/L (98-107); Potassium 4.5 mmol/L (3.5-5.1); Sodium 138 mmol/L (136-145)
[2024-01-04 10:38] LABS: Anion Gap 3 (5-15); Calcium 8.8 mg/dL (8.5-10.1); Carbon Dioxide 28 mmol/L (20-30)
[2024-01-04 10:43] LABS: BUN/Creatinine Ratio 13.8 (10.0-20.0); Blood Urea Nitrogen 13 mg/dL (9-23); Glucose 100 mg/dL (74-106)
== END | disposition home or self-care (01) ==
LOC: LAB 09:58
PROVIDERS: ATTEND Nurse Practitioner
DX: K74.60 Unspecified cirrhosis of liver (principal)
CPT/HCPCS: 36415; 80048

== ENCOUNTER → 2024-08-18 | Outpatient (CLI) | payer OTHER ==
[~2024-08-18] MED LIST changes: -TAMS0.4C36 PO; +TAMS0.4C39 PO
[2024-08-18 08:43] LABS: Alanine Aminotransferase 26 U/L (7-40); Albumin 3.9 g/dL (3.2-4.8); Alkaline Phosphatase 189 U/L (46-116); Anion Gap 8 (5-15); Aspartate Aminotransferase 32 U/L (13-40); BUN/Creatinine Ratio 14.3 (10.0-20.0); Bilirubin, Total 2.6 mg/dL (0.2-1.0); Blood Urea Nitrogen 14 mg/dL (9-23); Calcium 9.8 mg/dL (8.7-10.4); Carbon Dioxide 25 mmol/L (20-31); Chloride 105 mmol/L (98-107); Cholesterol 138 mg/dL (< 200); Glucose 109 mg/dL (74-106); HDL Cholesterol 83 mg/dL (40-59); LDL Cholesterol 33 mg/dL (< 100); Potassium 4.7 mmol/L (3.5-5.1); Sodium 138 mmol/L (136-145); Total Protein 6.6 g/dL (5.7-8.2); Triglycerides 37 mg/dL (< 150)
== END | disposition home or self-care (01) ==
LOC: LAB 08:04
PROVIDERS: ATTEND Nurse Practitioner
DX: E11.9 Type 2 diabetes mellitus without complications (principal); E78.5 Hyperlipidemia, unspecified
CPT/HCPCS: 36415; 80053; 80061; 83036

== ENCOUNTER → 2024-09-08 | Outpatient (CLI) | payer OTHER ==
[2024-09-08 09:24] LABS: Basophils # (auto) 0 10 ^3/uL (0-0.2); Basophils % (auto) 0.6 % (0.0-2.0); Eosinophils # (auto) 0.1 10 ^3/uL (0-0.8); Hemoglobin 12.8 g/dL (13.5-17.5); Monocytes # (auto) 0.3 10 ^3/uL (0-1.3); Neutrophils # (auto) 1.8 10 ^3/uL (1.6-8.6); Platelet Count (auto) 49 10^3/uL (140-450)
[2024-09-08 09:27] LABS: Eosinophils % (auto) 3.5 % (0.0-7.0); Lymphocytes # (auto) 0.8 10 ^3/uL (0.4-5.4); Lymphocytes % (auto) 25.9 % (10.0-50.0); Mean Corpuscular Hemoglobin 34.6 pg (28.0-32.0); Mean Corpuscular Hgb Conc. 34.5 g/dL (32.0-36.0); Mean Corpuscular Volume 100.3 fL (80.0-100.0); Monocytes % (auto) 9.6 % (0.0-12.0); Neutrophils % (auto) 60.4 % (37.0-80.0); Red Blood Cells 3.69 10^6/uL (4.5-5.90); Red Cell Distribution Width 14.9 % (11.8-14.3)
[2024-09-08 09:42] LABS: Alanine Aminotransferase 30 U/L (7-40); Albumin 3.8 g/dL (3.2-4.8); Alkaline Phosphatase 232 U/L (46-116); Anion Gap 7 (5-15); Aspartate Aminotransferase 33 U/L (13-40); BUN/Creatinine Ratio 14.4 (10.0-20.0); Bilirubin, Total 1.8 mg/dL (0.2-1.0); Blood Urea Nitrogen 15 mg/dL (9-23); Calcium 9.8 mg/dL (8.7-10.4); Carbon Dioxide 23 mmol/L (20-31); Chloride 104 mmol/L (98-107); Cholesterol 146 mg/dL (< 200); Glucose 104 mg/dL (74-106); HDL Cholesterol 83 mg/dL (40-59); LDL Cholesterol 36 mg/dL (< 100); Potassium 4.7 mmol/L (3.5-5.1); Sodium 134 mmol/L (136-145); Total Protein 6.3 g/dL (5.7-8.2); Triglycerides 47 mg/dL (< 150)
[2024-09-08 10:20] LABS: % Iron Saturation 42.5 % (20-55)
[2024-09-08 10:43] LABS: INR 1.17 (0.9-1.15); Prothrombin Time 12.3 sec (9.3-11.8)
== END | disposition home or self-care (01) ==
LOC: LAB 08:20
PROVIDERS: ATTEND Internal Medicine Gastroenterology
DX: K74.60 Unspecified cirrhosis of liver (principal)
CPT/HCPCS: 36415; 80053; 80061; 82728; 83540; 83550; 85025; 85610

== ENCOUNTER → 2024-12-13 | Outpatient (CLI) | payer OTHER ==
[2024-12-13 09:18] LABS: Alanine Aminotransferase 28 U/L (7-40); Albumin 3.7 g/dL (3.2-4.8); Anion Gap 8 (5-15); Aspartate Aminotransferase 33 U/L (13-40); BUN/Creatinine Ratio 14.6 (10.0-20.0); Blood Urea Nitrogen 14 mg/dL (9-23); Calcium 9.3 mg/dL (8.7-10.4); Carbon Dioxide 24 mmol/L (20-31); Chloride 104 mmol/L (98-107); Potassium 4.2 mmol/L (3.5-5.1); Sodium 136 mmol/L (136-145); Total Protein 5.8 g/dL (5.7-8.2)
[2024-12-13 09:24] LABS: Alkaline Phosphatase 152 U/L (46-116); Bilirubin, Total 1.9 mg/dL (0.2-1.0); Glucose 147 mg/dL (74-106)
== END | disposition home or self-care (01) ==
LOC: LAB 08:31
PROVIDERS: ATTEND Podiatrist
DX: M19.171 Post-traumatic osteoarthritis, right ankle and foot (principal)
CPT/HCPCS: 36415; 80053

== ENCOUNTER 2025-03-05 12:00 | Day surgery (SDC) | payer OTHER ==
[2025-02-28 10:45] LABS: Basophils # (auto) 0 10 ^3/uL (0-0.2); Eosinophils # (auto) 0.1 10 ^3/uL (0-0.8); Eosinophils % (auto) 3.6 % (0.0-7.0); Hemoglobin 13.2 g/dL (13.5-17.5); Lymphocytes # (auto) 0.7 10 ^3/uL (0.4-5.4); Monocytes # (auto) 0.4 10 ^3/uL (0-1.3); Nucleated Red Blood Cells % 0.1 %; White Blood Cell 3.2 10^3/uL (4.4-10.8)
[2025-02-28 10:46] LABS: Basophils % (auto) 0.6 % (0.0-2.0); Hematocrit 37.7 % (41.0-53.0); Lymphocytes % (auto) 22.4 % (10.0-50.0); Mean Corpuscular Hemoglobin 33.9 pg (28.0-32.0); Mean Corpuscular Hgb Conc. 34.9 g/dL (32.0-36.0); Mean Corpuscular Volume 97.2 fL (80.0-100.0); Monocytes % (auto) 11.3 % (0.0-12.0); Neutrophils % (auto) 62.1 % (37.0-80.0); Platelet Count (auto) 50 10^3/uL (140-450); Red Blood Cells 3.88 10^6/uL (4.5-5.90); Red Cell Distribution Width 15.4 % (11.8-14.3)
[2025-02-28 11:03] LABS: INR 1.16 (0.9-1.15); Partial Thromboplastin Time 28.6 SEC (24.5-34.5); Prothrombin Time 12.1 sec (9.3-11.8)
[2025-02-28 11:06] LABS: Alanine Aminotransferase 24 U/L (7-40); Anion Gap 7 (5-15); Aspartate Aminotransferase 30 U/L (13-40); BUN/Creatinine Ratio 14.2 (10.0-20.0); Blood Urea Nitrogen 15 mg/dL (9-23); Calcium 9.1 mg/dL (8.7-10.4); Carbon Dioxide 25 mmol/L (20-31); Chloride 105 mmol/L (98-107); Glucose 90 mg/dL (74-106); Potassium 4.5 mmol/L (3.5-5.1); Sodium 137 mmol/L (136-145); Total Protein 6.3 g/dL (5.7-8.2)
[2025-02-28 11:07] LABS: Alkaline Phosphatase 190 U/L (46-116)
[~2025-03-05] VITALS: Ht 175.3 cm; Wt 95.7 kg
[~2025-03-05 12:00] MED LIST changes: -METF-372 PO
[2025-03-05] MEDS ORDERED: SODIUM CHLORIDE LOCK 10 ML ONE (13:44)
[2025-03-05 15:50] VITALS: PULSE 102; RESP 19; O2SAT 100
[2025-03-05] MEDS: LIDOCAINE VISCOUS 2% 15ML UD ONE (15:52)
[2025-03-05] MEDS: fentaNYL CITRATE 100 MCG/2 ML VL ONE (15:52)
[2025-03-05] MEDS: diphenhdrAMINE HCL 50 MG/1 ML VL ONE (15:52)
[2025-03-05] MEDS: MIDAZOLAM HCL 5 MG/ML-1ML VIAL ONE (15:52)
--- NOTE | 2025-03-05 16:04 | DVHOP2 ---
Operative Report DATE OF OPERATION: 03/05/25 PROCEDURE: Upper Endoscopy with biopsy. PREOPERATIVE INDICATION: The patient is a 64 -year-old male undergoing endoscopy for evaluation of cirrhosis and to rule out varices POSTOPERATIVE DIAGNOSES: 1. 2-3 cm sliding-type hiatal hernia with no significant erosive esophagitis 2. Trace prominence of the distal esophageal veins which flattened with insufflation and there were no significant esophageal varices 3. Mild gastropathy more prominent in the proximal stomach 4. Otherwise normal examination up to the 2nd and 3rd part of the duodenum with no fresh or old blood in the GI tract PROCEDURE PERFORMED BY: Osmar Webb GI NURSE: Abril SCOPE: Olympus videoendoscope. ASA CLASS: 3 PREOPERATIVE MEDICATIONS: Versed 3 mg, Fentanyl 75 mcg, Benadryl 50 mg I administered moderate sedation throughout this _8_ minutes procedure. An independent trained observer pushed medications at my direction, and monitored the patient's level of consciousness and physiological status throughout. PROCEDURE IN DETAIL: After obtaining an informed consent, the patient was placed on left lateral decubitus position. The patient was then sedated with the above medications. A bite block was placed between his teeth. The endoscope was then passed through the oropharynx, into the esophagus, and through the stomach and pylorus up to the second and third part of the duodenum. The endoscope was then withdrawn. The 2nd and 3rd part of the duodenum and the duodenal bulb were normal. Duodenal biopsies were obtained The pre-pyloric area antrum showed mild gastritis. On retroflexion the patient had mild proximal stomach gastropathy portal hypertension Gastric biopsies were obtained. The endoscope was then withdrawn into the distal esophagus where the patient had a 2-3 cm sliding-type hiatal hernia There was no significant erosive esophagitis. Patient had trace prominence of the distal esophageal veins which flattened with insufflation There was no clinically significant esophageal varices or stigmata of recent bleeding The remaining distal and proximal esophagus and oropharynx were unremarkable The patient tolerated the procedure well without difficulty. COMPLICATIONS : None SPECIMENS: Duodenal biopsies Gastric biopsies DISPOSITION: Stable D/C to home PLAN: 1. Await for biopsy result 2. Will place pt on Protonix 40 mg p.o. daily 3. Resume GI soft diet advance as tolerated 4. Avoid aspirin and NSAIDs 5. Outpatient follow up with me in 4-6 weeks to review results and discuss further management OSMAR WEBB MD March 05, 2025 16:04
[2025-03-05 16:05] VITALS: PULSE 63; RESP 14; O2SAT 98
[2025-03-05 16:25] VITALS: BP 107/50; PULSE 75; RESP 14; O2SAT 98
== END 2025-03-05 17:00 | disposition home or self-care (01) ==
LOC: GI 12:00
PROVIDERS: ATTEND Internal Medicine Gastroenterology
DX: K74.60 Unspecified cirrhosis of liver (principal); K29.50 Unspecified chronic gastritis without bleeding; K29.80 Duodenitis without bleeding; K31.9 Disease of stomach and duodenum, unspecified; K44.9 Diaphragmatic hernia without obstruction or gangrene; I10 Essential (primary) hypertension; Z79.899 Other long term (current) drug therapy; Z98.890 Other specified postprocedural states
CPT/HCPCS: 36415; 43239; 80053; 82962; 85025; 85610; 85730; 88305; 88312; 88342; J1200; J2250; J3010; J7030

== ENCOUNTER → 2025-03-21 | Day surgery (SDC) | payer OTHER ==
[2025-03-16 14:03] LABS: Urine Bacteria None Seen /hpf (None Seen)
[2025-03-16 14:16] LABS: Basophils # (auto) 0 10 ^3/uL (0-0.2); Basophils % (auto) 0.7 % (0.0-2.0); Eosinophils # (auto) 0.1 10 ^3/uL (0-0.8); Eosinophils % (auto) 2.6 % (0.0-7.0); Hematocrit 37.2 % (41.0-53.0); Hemoglobin 12.8 g/dL (13.5-17.5); Lymphocytes # (auto) 0.8 10 ^3/uL (0.4-5.4); Lymphocytes % (auto) 23.2 % (10.0-50.0); Mean Corpuscular Hemoglobin 33.7 pg (28.0-32.0); Mean Corpuscular Hgb Conc. 34.5 g/dL (32.0-36.0); Mean Corpuscular Volume 97.6 fL (80.0-100.0); Monocytes # (auto) 0.4 10 ^3/uL (0-1.3); Monocytes % (auto) 11.2 % (0.0-12.0); Neutrophils # (auto) 2.2 10 ^3/uL (1.6-8.6); Neutrophils % (auto) 62.3 % (37.0-80.0); Platelet Count (auto) 52 10^3/uL (140-450); Red Blood Cells 3.81 10^6/uL (4.5-5.90); Red Cell Distribution Width 15.8 % (11.8-14.3); White Blood Cell 3.5 10^3/uL (4.4-10.8)
[2025-03-16 14:24] LABS: Alanine Aminotransferase 22 U/L (7-40); Anion Gap 5 (5-15); Aspartate Aminotransferase 27 U/L (13-40); BUN/Creatinine Ratio 13.6 (10.0-20.0); Blood Urea Nitrogen 17 mg/dL (9-23); Calcium 9.8 mg/dL (8.7-10.4); Carbon Dioxide 25 mmol/L (20-31); Chloride 106 mmol/L (98-107); Sodium 136 mmol/L (136-145); Total Protein 6.5 g/dL (5.7-8.2)
[2025-03-16 14:27] LABS: Alkaline Phosphatase 149 U/L (46-116); Bilirubin, Total 1.7 mg/dL (0.2-1.0); Glucose 111 mg/dL (74-106)
[2025-03-16 14:32] LABS: INR 1.16 (0.9-1.15); Partial Thromboplastin Time 28.7 SEC (24.5-34.5); Prothrombin Time 12.1 sec (9.3-11.8)
[2025-03-20 10:14] LABS: Urine Blood Negative /uL (Negative); Urine Clarity Clear (Clear); Urine Color Yellow (Yellow); Urine Protein, UAD Negative (Negative); Urine Specific Gravity 1.019 (1.001-1.035); Urine Squamous Epithelial Cell FEW /hpf (<5); Urine Urobilinogen Normal (Negative); Urine WBC 1 /HPF (0-3); Urine pH 5.5 (5.0-9.0)
[~2025-03-21] MED LIST changes: +ceFAZolin 2 GM/D5W50ml 0 ML IV ONE
--- NOTE | 2025-03-21 10:27 | DVHOP2 ---
Operative Report - 2 Report Details Date: 03/21/25 Preop Diagnosis: 1. Right ankle synovitis 2. Right ankle osteochondral defect 3. Right ankle pain Postop Diagnosis: Same as preop Surgeon: Silke Hickman MD Anesthesiologist: See anesthesia Anesthesia: General Consent: The patient was informed of the risks and benefits of the procedure. These include but are not limited to complications of anesthesia, postoperative infection, incomplete relief of symptoms, recurrence of symptoms, damage to blood vessels, nerves and tendons, deep venous thrombosis, pulmonary embolism and possible need for repeat surgery in the future. Complications: None Estimated Blood Loss: Minimal Fluids: See anesthesia Findings: Consistent with diagnosis Indications for Surgery: Worsening right ankle pain Name of Procedure Performed 1. Right ankle arthroscopy with extensive synovectomy (56074) 2. Right ankle OCD microfracture (12996) Disposition Home SILKE HICKMAN M Mar 21, 2025 10:27
[2025-03-21 10:31] VITALS: BP 96/56; PULSE 52; RESP 18; TEMP 97.7; O2SAT 99
== END | disposition home or self-care (01) ==
LOC: SUR 09:39
PROVIDERS: ATTEND Podiatrist
DX: M19.171 Post-traumatic osteoarthritis, right ankle and foot (principal); Z53.8 Procedure and treatment not carried out for other reasons; M65.971 Unspecified synovitis and tenosynovitis, right ankle and foot; M21.6X1 Other acquired deformities of right foot; E11.42 Type 2 diabetes mellitus with diabetic polyneuropathy; Z79.82 Long term (current) use of aspirin; F32.A Depression, unspecified; Z98.890 Other specified postprocedural states; Z82.49 Family history of ischemic heart disease and other diseases of the circulatory system; Z83.3 Family history of diabetes mellitus
CPT/HCPCS: 36415; 80053; 81001; 85025; 85610; 85730

== ENCOUNTER → 2025-04-17 | Outpatient (CLI) | payer OTHER ==
[~2025-04-17] MED LIST changes: -ceFAZolin 2 GM/D5W50ml 0 ML IV ONE
[2025-04-17 08:00] LABS: Hemoglobin 13.0 g/dL (13.5-17.5); Mean Corpuscular Volume 97.8 fL (80.0-100.0); Nucleated Red Blood Cells % 0.1 %
[2025-04-17 08:01] LABS: Hematocrit 37.3 % (41.0-53.0); Mean Corpuscular Hemoglobin 34.1 pg (28.0-32.0)
[2025-04-17 08:18] LABS: Alanine Aminotransferase 17 U/L (7-40); Albumin 3.8 g/dL (3.2-4.8); Anion Gap 7 (5-15); BUN/Creatinine Ratio 15.8 (10.0-20.0); Blood Urea Nitrogen 15 mg/dL (9-23); Calcium 9.5 mg/dL (8.7-10.4); Carbon Dioxide 25 mmol/L (20-31); Cholesterol 118 mg/dL (< 200); Glucose 98 mg/dL (74-106); Potassium 4.0 mmol/L (3.5-5.1); Sodium 142 mmol/L (136-145); Total Protein 6.1 g/dL (5.7-8.2); Triglycerides 47 mg/dL (< 150)
[2025-04-17 08:20] LABS: Alkaline Phosphatase 164 U/L (46-116); Bilirubin, Total 1.8 mg/dL (0.2-1.0); Chloride 110 mmol/L (98-107); HDL Cholesterol 63 mg/dL (40-59)
[2025-04-17 08:52] LABS: Urine Protein, UAD Negative (Negative)
== END | disposition home or self-care (01) ==
LOC: LAB 07:40
PROVIDERS: ATTEND Nurse Practitioner
DX: I10 Essential (primary) hypertension (principal); E11.9 Type 2 diabetes mellitus without complications; E78.5 Hyperlipidemia, unspecified
CPT/HCPCS: 36415; 80053; 80061; 81001; 83036; 84443; 85025

== ENCOUNTER 2025-04-23 08:00 | Outpatient (CLI) | payer OTHER ==
[~2025-04-23] VITALS: Ht 175.3 cm; Wt 96.6 kg
[2025-04-23] MEDS: REGADENOSON 0.4 MG/5 ML SYRG IV ONE ×2 (09:12→09:25)
--- NOTE | 2025-04-23 13:46 | DVHSR ---
APPROVED REPORT Exam: Nuclear Stress Test BMI: 0 Stress Test Details HR Max Heart Rate (APMHR): 156.611827 bpm Target HR (85% APMHR): 132.390607 bpm BP ECG Stress ECG Conclusion lvef 50% inferoseptal fixed defect lot of GI artifact noted clinical correlate no major ischemia NM EXAM: Myocardial Perfusion REST/STRESS Imaging Protocol: Rest Tc-99m/Stress Tc-99m 1 day Resting Data Rest SPECT myocardial perfusion imaging was performed in supine position 60 minutes following the int ravenous injection of 10.5 mCi of Tc-99m Sestamibi. Time of rest injection: 08:25 Date: 04/23/2025 Time of rest imagin:25 Date: 04/23/2025 Administration Route: IV Administration Site: Right Arm Pharmacologic Stress Pharmacologic stress test was performed by injecting Regadenoson 0.4 mg IV push followed by the intra venous injection of 33.9 mCi of Tc-99m Sestamibi. Time of stress injection: 09:25 Date: 04/23/2025 Time of stress imagin:25 Date: 04/23/2025 Administration Route: IV Administration Site: Right Arm Gated Stress SPECT was performed 60 minutes after stress injection. The images were gated to evaluate regional wall motion and calculate left ventricular ejection fracti on. Stress only was performed in the Supine position. Comments PATIENT ATE A FATTY MEAL AND WALKED AROUND THE LOBBY PRIOR TO STRESS IMAGES. Nuclear Conclusion Nuclear Findings: negative for ischemia lvef 50% inferoseptal fixed defect lot of GI artifact noted clinical correlate no major ischemia
== END 2025-04-23 17:00 | disposition home or self-care (01) ==
LOC: XYW 08:00
PROVIDERS: ATTEND Student in an Organized Health Care Education/Training Program
DX: Z01.810 Encounter for preprocedural cardiovascular examination (principal)
CPT/HCPCS: 78452; 93017; A9500; J2785

== ENCOUNTER 2025-07-02 12:54 | Day surgery (SDC) | payer OTHER ==
[2025-06-26 12:32] LABS: Hemoglobin 13.9 g/dL (13.5-17.5)
[2025-06-26 12:34] LABS: Hematocrit 39.9 % (41.0-53.0); Mean Corpuscular Hemoglobin 32.6 pg (28.0-32.0); Mean Corpuscular Volume 94.0 fL (80.0-100.0); Nucleated Red Blood Cells % 0.3 %
[2025-06-26 12:46] LABS: INR 1.17 (0.9-1.15); Partial Thromboplastin Time 29.9 SEC (24.5-34.5); Prothrombin Time 12.2 sec (9.3-11.8)
[2025-06-26 12:56] LABS: Alanine Aminotransferase 22 U/L (7-40); Albumin 4.1 g/dL (3.2-4.8); Anion Gap 5 (5-15); BUN/Creatinine Ratio 14.9 (10.0-20.0); Blood Urea Nitrogen 14 mg/dL (9-23); Calcium 9.2 mg/dL (8.7-10.4); Carbon Dioxide 26 mmol/L (20-31); Glucose 95 mg/dL (74-106); Potassium 4.4 mmol/L (3.5-5.1); Sodium 139 mmol/L (136-145); Total Protein 6.8 g/dL (5.7-8.2)
[2025-06-26 13:00] LABS: Alkaline Phosphatase 174 U/L (46-116); Bilirubin, Total 1.7 mg/dL (0.2-1.0); Chloride 108 mmol/L (98-107)
[2025-06-26 13:18] LABS: Urine Protein, UAD Negative (Negative)
[~2025-07-02] VITALS: Ht 175.3 cm; Wt 99.8 kg
[~2025-07-02 12:54] MED LIST changes: -ACET500C PO; -ASPI-325 PO; +FURO20TA3 PO; -LISI10TA34 PO; -LOVA10TA54 PO; +SPIR25TA8 PO
[2025-07-02] MEDS ORDERED: ETOMIDATE (2MG/ML) 20ML VIAL IV ONE (12:55)
[2025-07-02] MEDS ORDERED: HYDROmorphone HCL 2 MG/ML VL/or syr IV ONE (12:55)
[2025-07-02] MEDS ORDERED: ONDANSETRON HCL 4 MG/2 ML VIAL IV ONE (12:55)
[2025-07-02] MEDS ORDERED: FENTANYL 100mcg/2mL SYRINGE IV ONE (12:55)
[2025-07-02] MEDS ORDERED: ceFAZolin 1GM/50ML 100 ML IV ONE ×2 (13:04→14:24)
[2025-07-02 15:29] VITALS: PULSE 85; RESP 12; O2SAT 95
--- NOTE | 2025-07-02 15:31 | DVHOP2 ---
Operative Report - 2 Report Details Date: 07/02/25 Preop Diagnosis: 1. Right ankle synovitis 2. Right ankle osteochondral defect 3. Right ankle post traumatic arthritis 4. Right ankle pain Postop Diagnosis: Same as preop Surgeon: Silke Hickman MD Anesthesiologist: See anesthesia Anesthesia: General Consent: The patient was informed of the risks and benefits of the procedure. These include but are not limited to complications of anesthesia, postoperative infection, incomplete relief of symptoms, recurrence of symptoms, damage to blood vessels, nerves and tendons, deep venous thrombosis, pulmonary embolism and possible need for repeat surgery in the future. Complications: None Estimated Blood Loss: Minimal Fluids: See anesthesia Findings: Consistent with diagnosis Indications for Surgery: Worsening right ankle pain Name of Procedure Performed 1. Right ankle extensive synovitis (02273) 2. Right ankle microfracture (09694) Procedure Details Procedure Details: PRE-PROCEDURE INFORMATION: In the pre-op holding area, the extremity to be operated on was clearly marked and the patient verified correct laterality of the marking. The patient was transferred to the OR table and placed in a supine position. A timeout was performed in which identification of the correct patient, procedure, location, and materials was done. The right foot and leg were prepped and draped in normal sterile fashion. The foot and leg were exsanguinated and the thigh tourniquet was inflated to 250 mmHg. DESCRIPTION OF PROCEDURE: Attention was directed to the right anterior ankle where stab incisions were made at the medial and lateral ankle gutters. These incisions were deepened through blunt dissection to the level of the capsule, and utilizing the ankle arthroscopy set, the arthroscopy camera and the debrider were placed into the ankle joint and an extensive exam of the ankle joint was performed of the medial and lateral ankle gutters, the posterior talus and tibia as well as the anterior talus and tibia. These areas were visually inspected using the camera. It was noted that there was significant ankle synovitis, including hemorrhagic synovitis throughout the ankle specifically the medial and lateral gutters. There appeared to be no osteochondral defects or lesion. Utilizing arthroscopy debrider and utilizing the total arthroscopy set, there was extensive debridement of the aforementioned ankle synovitis. Utilizing standard microfracture set, a microfracture was performed of the right lateral shoulder. It was noted prior to performing the arthroscopy that the patient's ankle was maximally dorsiflexed and plantar flexed passively that there was significant audible and palpable clicking within the joint. After this extensive debridement was performed, there was no longer any palpable or audible clicking of this joint. After the ankle scope was performed, the incisions were closed with nylon suture. All surgical wounds were irrigated copiously with saline and closed in layers with the aforementioned suture material. A dry sterile dressing was placed on the surgical extremity. The patient was placed in a cam boot POSTOPERATIVE INFORMATION: The patient tolerated the above noted procedure and anesthesia well and was transferred to the PACU with vital signs stable, and vascular status intact with capillary refill intact to all digits. Postoperative instructions reviewed in detail with the patient with written instructions provided. Patient will return to clinic in approximately 10-14 days for first postoperative visit. Patient has the number of the clinic and was instructed to call prior to that time should any problems, questions, or concerns arise. Condition Good Disposition Home Visit Coding Podiatry Date of Service if different f: Jul 02, 2025 Billing Provider: SILKE HICKMAN DPM Podiatry Common Visit Codes: PROCEDURE ONLY SILKE HICKMAN DPM Jul 02, 2025 15:31
[2025-07-02] MEDS ORDERED: ACETAMINOPHEN IV 1000 MG/100ML (10MG/ML) IV PRN (15:45)
[2025-07-02] MEDS ORDERED: ONDANSETRON HCL 4 MG/2 ML VIAL IV PRN (15:45)
[2025-07-02] MEDS ORDERED: HYDROmorphone HCL 2 MG/ML VL/or syr IV PRN (15:45)
[2025-07-02 16:29] VITALS: BP 121/79; PULSE 68; RESP 12; TEMP 97.6
[2025-07-02 16:52] VITALS: O2SAT 96
== END 2025-07-02 16:52 | disposition home or self-care (01) ==
LOC: SUR 12:54
PROVIDERS: ATTEND Podiatrist
DX: M19.171 Post-traumatic osteoarthritis, right ankle and foot (principal); M94.8X7 Other specified disorders of cartilage, ankle and foot; M65.971 Unspecified synovitis and tenosynovitis, right ankle and foot; E11.42 Type 2 diabetes mellitus with diabetic polyneuropathy; M93.271 Osteochondritis dissecans, right ankle and joints of right foot; F17.210 Nicotine dependence, cigarettes, uncomplicated; I10 Essential (primary) hypertension; K21.9 Gastro-esophageal reflux disease without esophagitis; E66.9 Obesity, unspecified; F32.A Depression, unspecified; F12.90 Cannabis use, unspecified, uncomplicated; Z79.82 Long term (current) use of aspirin; Z82.49 Family history of ischemic heart disease and other diseases of the circulatory system; Z83.3 Family history of diabetes mellitus; Z79.899 Other long term (current) drug therapy; Z98.890 Other specified postprocedural states
CPT/HCPCS: 29898; 36415; 80053; 81001; 85025; 85610; 85730; J0690; J1171; J2405; J3010

== ENCOUNTER → 2025-07-25 | Outpatient (CLI) | payer OTHER | END | disposition home or self-care (01) | LOC: LAB 15:32 | PROVIDERS: ATTEND Nurse Practitioner | DX: L02.222 Furuncle of back [any part, except buttock and flank] (principal); L02.212 Cutaneous abscess of back [any part, except buttock and flank] | CPT/HCPCS: 87040; 87070; 87075; 87081; 87205 ==

== ENCOUNTER 2025-09-28 10:29 | Day surgery (SDC) | payer MEDICARE, OTHER ==
[2025-09-25 13:17] LABS: INR 1.18 (0.9-1.15); Partial Thromboplastin Time 30.3 SEC (24.5-34.5); Prothrombin Time 12.3 sec (9.3-11.8)
[2025-09-25 13:22] LABS: Hemoglobin 14.1 g/dL (13.5-17.5)
[2025-09-25 13:24] LABS: Hematocrit 41.9 % (41.0-53.0); Mean Corpuscular Hemoglobin 31.9 pg (28.0-32.0); Mean Corpuscular Volume 94.5 fL (80.0-100.0); Nucleated Red Blood Cells % 0.5 %
[2025-09-25 13:36] LABS: Alanine Aminotransferase 28 U/L (7-40); Albumin 3.8 g/dL (3.2-4.8); Anion Gap 8 (5-15); BUN/Creatinine Ratio 13.0 (10.0-20.0); Blood Urea Nitrogen 12 mg/dL (9-23); Calcium 9.3 mg/dL (8.7-10.4); Carbon Dioxide 28 mmol/L (20-31); Chloride 104 mmol/L (98-107); Potassium 4.0 mmol/L (3.5-5.1); Sodium 140 mmol/L (136-145); Total Protein 6.7 g/dL (5.7-8.2)
[2025-09-25 13:38] LABS: Alkaline Phosphatase 216 U/L (46-116); Bilirubin, Total 1.9 mg/dL (0.2-1.0); Glucose 115 mg/dL (74-106)
[2025-09-26 10:13] LABS: Urine Protein, UAD Negative (Negative)
[~2025-09-28] VITALS: Ht 175.3 cm; Wt 101.6 kg
[2025-09-28] MEDS ORDERED: PROPOFOL 10 MG/ML 20 ML IV ONE ×2 (11:06→11:13)
[2025-09-28] MEDS ORDERED: LIDOCAINE 1% INJ PF 5ML AMP ONE (11:06)
[2025-09-28] MEDS ORDERED: LIDOCAINE 2% (LOCAL ANESTH.) PF 5ml SDV ONE (11:23)
[2025-09-28 11:28] VITALS: PULSE 86; RESP 20; TEMP 98.4; O2SAT 97
--- NOTE | 2025-09-28 11:31 | DVHOP2 ---
Operative Report DATE OF OPERATION: 09/28/25 PROCEDURE: Colonoscopy with cold biopsy polypectomy. PREOPERATIVE INDICATION: The patient is a 64 -year-old male undergoing colonoscopy for screening with questionable personal history of colon polyps POSTOPERATIVE DIAGNOSES: 1. There were two less than 1 cm benign-appearing descending colon polyps that were seen and removed completely via cold biopsy forceps 2. Patient had 3-4 diminutive benign-appearing sigmoid hyperplastic type polyps that were seen and removed via cold biopsy forceps 3. 1+ internal hemorrhoids otherwise essentially completely normal colonoscopy examination up to the cecum and terminal ileum PROCEDURE PERFORMED BY: Osmar Webb M.D. SCOPE: Olympus videocolonoscope. ASA CLASS: 3. PREOPERATIVE MEDICATIONS: Mac sedation, Damian Butler PROCEDURE IN DETAIL: After obtaining an informed consent, the patient was placed on left lateral decubitus position. He was then sedated with the above medications. A rectal examination was performed that was normal. The colonoscope was then passed through the anus into the rectosigmoid and through the descending, transverse, and ascending colon up to the cecum with visualization of the appendiceal orifice, base of the cecum and the ileocecal valve. The colonoscope was then withdrawn. The distal 3-5 cm of the terminal ileum were normal No masses or colitis were seen. There was no clear-cut diverticular disease. In the descending colon there were two less than 5 mm benign-appearing polyps that were seen and removed via cold biopsy forceps In the rectosigmoid there were four benign-appearing hyperplastic type diminutive polyps that were seen and removed by cold biopsy forceps On retroflexion and straight on view patient had trace to 1+ internal hemorrhoids The patient tolerated the procedure well without difficulty. WITHDRAWAL TIME: 10 minutes QUALITY OF THE PREP: [place] Bowel Prep score: 9. COMPLICATIONS : None SPECIMENS: Descending colon polyps x2 Rectosigmoid polyps x4 DISPOSITION: Stable D/C to home PLAN: 1. Repeat colonoscopy base on biopsy result likely in five years 2. Resume GI soft diet advance as tolerated 3. Hold aspirin NSAIDs blood thinners for one week 4. Outpatient follow up with me in 2-4 weeks to review results and discuss [facility] management OSMAR WEBB MD Sep 28, 2025 11:31
[2025-09-28 11:53] VITALS: BP 126/73; PULSE 62; RESP 12; O2SAT 96
== END 2025-09-28 12:07 | disposition home or self-care (01) ==
LOC: GI 10:29
PROVIDERS: ATTEND Internal Medicine Gastroenterology
DX: Z12.11 Encounter for screening for malignant neoplasm of colon (principal); D12.4 Benign neoplasm of descending colon; K64.8 Other hemorrhoids; E11.9 Type 2 diabetes mellitus without complications; K21.9 Gastro-esophageal reflux disease without esophagitis; I10 Essential (primary) hypertension; N40.0 Benign prostatic hyperplasia without lower urinary tract symptoms; F17.210 Nicotine dependence, cigarettes, uncomplicated; F32.A Depression, unspecified; F12.90 Cannabis use, unspecified, uncomplicated; Z79.899 Other long term (current) drug therapy; Z82.49 Family history of ischemic heart disease and other diseases of the circulatory system; Z83.3 Family history of diabetes mellitus; Z98.890 Other specified postprocedural states
CPT/HCPCS: 36415; 45380; 80053; 81001; 85025; 85610; 85730; 88305; J2003; J2704; J7030